=== PATIENT | female | born 1945 | race Caucasian/White ===

== ENCOUNTER 2019-07-04 12:51 | Outpatient (REF) | payer MEDICARE, SELFPAY | END 2019-07-04 13:11 | LOC: NCHCN 12:51 | PROVIDERS: PCP Family Medicine; Visit Provider Family Medicine | DX: L02.411 Cutaneous abscess of right axilla (principal) | CPT/HCPCS: 87077; 87070; 87186; 87205 ==

== ENCOUNTER 2019-08-29 11:53 | Outpatient (REF) | payer MEDICARE, SELFPAY ==
[2019-08-29 14:09] LABS: Anion Gap 8.4 mmol/L (3-11); BUN 21 mg/dL (7-18); CO2 27.6 mmol/L (21.0-32.0); CREATININE 0.65 mg/dL (0.55-1.02); Calcium 9.4 mg/dL (8.5-10.1); Chloride 104 mmol/L (98-107); Glucose 113 mg/dL (70-100); Potassium 4.7 mmol/L (3.5-5.1); Sodium 140 mmol/L (136-145); TSH (W/Ref FT4) 1.99 uIU/mL (0.36-3.74); Vitamin B12 352 pg/mL (193-986)
== END 2019-08-29 12:13 ==
LOC: NCHCN 11:53
PROVIDERS: PCP Family Medicine; Visit Provider Family Medicine
DX: R53.83 Other fatigue (principal); E11.9 Type 2 diabetes mellitus without complications; I10 Essential (primary) hypertension
CPT/HCPCS: 80048; 82607; 84443

== ENCOUNTER 2020-07-10 11:55 | Outpatient (REF) | payer MEDICARE, SELFPAY ==
[2020-07-10 21:45] LABS: Anion Gap 8.9 mmol/L (3-11); BUN 17 mg/dL (7-18); C-Reactive Protein 0.54 mg/dL (0.0-0.3); CO2 27.1 mmol/L (21.0-32.0); CREATININE 0.73 mg/dL (0.55-1.02); Calcium 9.1 mg/dL (8.5-10.1); Chloride 104 mmol/L (98-107); Glucose 113 mg/dL (74-106); Potassium 4.7 mmol/L (3.5-5.1); Sodium 140 mmol/L (136-145)
== END 2020-07-10 12:15 ==
LOC: NCHCN 11:55
PROVIDERS: PCP Family Medicine; Visit Provider Family Medicine
DX: R25.2 Cramp and spasm (principal); R21 Rash and other nonspecific skin eruption; I10 Essential (primary) hypertension
CPT/HCPCS: 80048; 83735; 86140

== ENCOUNTER 2021-04-17 15:17 | Outpatient (REF) | payer MEDICARE, SELFPAY | END 2021-04-17 15:18 | disposition home or self-care (01) | LOC: LBN 15:17 | PROVIDERS: PCP Family Medicine; Visit Provider Physician Assistant Medical | DX: L08.0 Pyoderma (principal) | CPT/HCPCS: 87077; 87070; 87186; 87205 ==

== ENCOUNTER 2021-08-21 10:03 | Outpatient (REF) | payer MEDICARE, SELFPAY ==
[2021-08-21 14:57] LABS: Anion Gap 8.5 mmol/L (3-11); BUN 13 mg/dL (7-18); CO2 29.5 mmol/L (21.0-32.0); CREATININE 0.7 mg/dL (0.55-1.02); Chloride 104 mmol/L (98-107); Glucose 116 mg/dL (74-106); Magnesium 2.2 mg/dL (1.8-2.4); Potassium 4.1 mmol/L (3.5-5.1); Sodium 142 mmol/L (136-145)
[2021-08-22 14:19] LABS: Hepatitis C Ab w Rflx HCV PCR Negative (Negative)
== END 2021-08-21 10:04 | disposition home or self-care (01) ==
LOC: LBN 10:03
PROVIDERS: PCP Family Medicine; Visit Provider Family Medicine
DX: E11.9 Type 2 diabetes mellitus without complications (principal); Z11.59 Encounter for screening for other viral diseases
CPT/HCPCS: 80048; 86803; 83735

== ENCOUNTER 2021-10-01 09:07 | Outpatient (REF) | payer MEDICARE, SELFPAY ==
[2021-10-01 19:25] LABS: Calculated LDL 153 mg/dL (<100); Cholesterol 241 mg/dL (<200); HDL Cholesterol 61 mg/dL (40-60); Triglyceride 135 mg/dL (<150)
== END 2021-10-01 09:08 | disposition home or self-care (01) ==
LOC: NCHCN 09:07
PROVIDERS: PCP Family Medicine; Visit Provider Family Medicine
DX: E78.5 Hyperlipidemia, unspecified (principal)
CPT/HCPCS: 80061